=== PATIENT | female | born 1960 | race Caucasian/White ===

== ENCOUNTER 2018-04-20 08:30 | Emergency (ER) | payer MEDICARE ==
[2018-04-20] MEDS ORDERED: solu-MEDROL 125 MG IV ONE (08:53)
[2018-04-20] MEDS ORDERED: DUONEB 0.5-3 MG/3 ml Neb IH ONE ×2 (08:53→09:02)
[2018-04-20] MEDS ORDERED: Sodium Chloride 0.9% 1000 ML 1,000 ML IV STA ×3 (08:53→09:28)
--- NOTE | 2018-04-20 09:02 | ERPHSYRPT ---
- History of Present Illness Time Seen by Provider: 04/20/18 08:48 Source: patient Exam Limitations: no limitations Patient Subjective Stated Complaint: HAS HAD URI FOR THREE WEEKS. SAW FAMILY DOCTOR LAST TUESDAY AND WAS GIVEN STEROIDS AND ANTIBIOTIC. IS NOT GETTING ANY BETTER. Triage Nursing Assessment: AMBULATED TO ROOM PER SELF. SKIN W/D, COLOR NORMAL, RESP NONLABORED. EXP WHEEZE HEARD RIGHT LOWER LOBE BASE. Physician History: 57-year-old white female with history of CVA, hypothyroidism, hypercholesterolemia, bladder cancer, uterine cancer, Patient arrives with complaint of upper respiratory infection and short of breath for 4 weeks She is not complaining of any fever she has no chest pain she states that she is on Augmentin tapering dose of prednisone and has albuterol at home Patient apparently had presented this morning for a chest x-ray and then presented to the emergency room with the above complaint. Patient without nausea or vomiting. Past medical history includes hypothyroidism, CVA, hypercholesterolemia, fractures, bladder cancer, anxiety, depression, uterine cancer, patient self catheterizes herself her urine Past surgical history includes orthopedic surgery, hysterectomy, urostomy tube urostomy tube, bladder urethral surgery Social history patient states she is a former smoker Timing/Duration: week(s) (4 weeks) Activities at Onset: none Severity of Dyspnea-Max: moderate Severity of Dyspnea-Current: moderate Possible Cause: occasional episodes Modifying Factors: Improves With: albuterol nebulizer Associated Symptoms: constant, wheezing, No intermittent, No anxiety, No cough, No chest pain/discomfort, No edema, No fever, No insomnia, No loss of appetite, No lightheadedness, No weakness, No ankle swelling, No chills, No hemoptysis, No calf pain, No dizziness, No heaviness, No heart racing, No lightheadedness, No leg swelling, No muscle spasms feet, No muscle spasms hands, No painful breathing, No productive cough, No sweating, No tightness, No tingling face International travel in last 2 weeks: No Allergies/Adverse Reactions: morphine Allergy (Verified 04/20/18 08:42) Itching Sulfa (Sulfonamide Antibiotics) Allergy (Verified 04/20/18 08:42) hives, itching, swelling Home Medications: Leflunomide [Arava] 20 mg PO DAILY 05/21/16 [History] Levothyroxine Sodium [Synthroid] 175 mcg PO DAILY 04/19/17 [History] Oxycodone HCl/Acetaminophen [Percocet 7.5-325 mg Tablet] 1 tab PO Q6H 04/19/17 [ History] Apixaban [Eliquis] 5 mg PO BID 04/20/18 [History] Zolpidem Tartrate 10 mg [Ambien 10 MG] 10 mg PO HS 04/20/18 [History] Hx Tetanus, Diphtheria Vaccination/Date Given: Yes Hx Influenza Vaccination/Date Given: Yes Hx Pneumococcal Vaccination/Date Given: No - Review of Systems Constitutional: No Fever, No Chills Eyes: No Symptoms Ears, Nose, & Throat: Nose Congestion, Nose Discharge, No Ear Pain, No Ear Discharge, No Hearing Changes, No Tinnitus, No Nose Pain, No Sinus Drainage, No Epistaxis, No Mouth Pain, No Mouth Swelling, No Loose Teeth, No Throat Pain, No Throat Swelling, No Hoarse, No Painful Swallowing, No Snoring, No Stridor Respiratory: Cough, Dyspnea, Wheezing, No Cyanosis, No Dyspnea on Exertion (GARZA) , No Stridor Cardiac: No Symptoms Abdominal/Gastrointestinal: No Abdominal Pain, No Nausea, No Vomiting, No Diarrhea Genitourinary Symptoms: No Dysuria Musculoskeletal: No Back Pain, No Neck Pain Skin: No Rash Neurological: No Dizziness, No Focal Weakness, No Sensory Changes Psychological: No Symptoms Endocrine: No Symptoms All Other Systems: Reviewed and Negative - Past Medical History Pertinent Past Medical History: Yes Neurological History: Stroke ENT History: No Pertinent History Cardiac History: High Cholesterol Respiratory History: No Pertinent History Endocrine Medical History: Hypothyroidism Musculoskeletal History: Fractures GI Medical History: No Pertinent History History: Bladder Cancer Psycho-Social History: Depression, Anxiety Female Reproductive Disorders: Cervical Cancer, Uterine Cancer Other Medical History: Self cath - Past Surgical History Past Surgical History: Yes Neuro Surgical History: No Pertinent History Cardiac: No Pertinent History Respiratory: No Pertinent History Gastrointestinal: No Pertinent History Genitourinary: No Pertinent History Musculoskeletal: Orthopedic Surgery, Other Female Surgical History: Hysterectomy Other Surgical History: BLADDER TUMOR REMOVED - Social History Smoking Status: Current every day smoker How long have you smoked: YRS Exposure to second hand smoke: No Drug Use: none Patient Lives Alone: No - Female History Hx Now: No - Nursing Vital Signs Nursing Vital Signs: Initial Vital Signs Temperature 98.7 F 04/20/18 08:33 Pulse Rate 126 H 04/20/18 08:33 Respiratory Rate 20 04/20/18 08:33 Blood Pressure 142/86 04/20/18 08:33 O2 Sat by Pulse Oximetry 97 04/20/18 08:33 Pain Scale Pain Intensity 0 - Physical Exam General Appearance: mild distress, alert Eye Exam: PERRL/EOMI Ears, Nose, Throat Exam: hearing grossly normal, normal ENT inspection, normal pharynx, nasal congestion, No abnormal TM (R), No abnormal TM (L), No sinus pain /drainage, No hearing decreased, No pharyngeal erythema, No tonsillar exudate, No tonsillar swelling Neck Exam: normal inspection, supple Respiratory Exam: lungs clear, No normal breath sounds, No chest tenderness, No respiratory distress, No airway intact, No diminished breath sounds, No accessory muscle use, No prolonged expirations, No crackles/rales, No rhonchi, No wheezing, No stridor, No pleural rub Cardiovascular/Chest Exam: normal heart sounds, regular rate/rhythm Abdominal/Gastrointestinal Exam: soft, No tenderness, No distention, No mass Extremity Exam: non-tender, normal range of motion, normal inspection, no calf tenderness, no pedal edema Peripheral Pulses Exam: dorsalis-pedis (R): 2+, dorsalis-pedis (L): 2+ Neurologic Exam: alert, oriented x 3, cooperative, fire prevention specialist II-XII nml as tested, sensation nml, No motor deficits Skin Exam: normal color, warm, No dry SpO2 Interpretation: normal (97%) SpO2: 97 - Course Nursing assessment & vital signs reviewed: Yes EKG Interpreted by Me: RATE (94 bpm), Sinus Rhythm, NORMAL AXIS, Other (EKG: Sinus rhythm, 94 bpm, normal axis, no acute ST or T wave changes, compared to August 25, 2015) Ordered Tests: Active Orders 24 hr Category Date Time Status Sole Layer STAT Care 04/20/18 08:55 Active EKG-ER Only STAT Care 04/20/18 08:53 Active IV Insertion STAT Care 04/20/18 08:53 Active Pulse Oximetry (ED) STAT Care 04/20/18 08:53 Active Regular Diet Diet 04/20/18 Lunch Active BLOOD CULTURE Stat Lab 04/20/18 09:44 Received CBC W DIFF Stat Lab 04/20/18 08:35 Completed CMP Stat Lab 04/20/18 08:35 Completed CULTURE,SPUTUM Stat Lab 04/20/18 09:22 Uncollected CULTURE,URINE Stat Lab 04/20/18 09:37 Received D-DIMER QUANTITATION Stat Lab 04/20/18 08:35 Completed Lactic Acid Stat Lab 04/20/18 09:15 Completed Lactic Acid Stat Lab 04/20/18 12:43 Results NT PRO BNP Stat Lab 04/20/18 08:35 Completed TROPONIN Q3H Lab 04/20/18 08:35 Completed UA W/RFX UR CULTURE Stat Lab 04/20/18 09:37 Completed VENOUS BLOOD GAS Stat Lab 04/20/18 09:15 Completed Peak Expiratory Flow Rate ONCE RT 04/20/18 09:00 Active Respiratory Nebulizer STAT RT 04/20/18 08:55 Active Respiratory Nebulizer STAT RT 04/20/18 13:00 Active Respiratory Therapy Assessment DAILY RT 04/20/18 09:00 Active Medication Summary Discontinued Medications Generic Name Dose Route Start Last Admin Trade Name Freq PRN Reason Stop Dose Admin Albuterol Sulfate 2.5 mg 04/20/18 13:00 04/20/18 13:04 Proventil 2.5 Mg/3 Ml Neb IH 04/20/18 13:01 2.5 mg STAT ONE Administration Albuterol Sulfate Confirm 04/20/18 13:06 Proventil 2.5 Mg/3 Ml Neb Administered 04/20/18 13:07 Dose 2.5 mg IH .STK-MED ONE Albuterol/Ipratropium 3 ml 04/20/18 08:53 04/20/18 09:03 Duoneb 0.5-3 Mg/3 Ml Neb IH 04/20/18 08:54 3 ml STAT ONE Administration Albuterol/Ipratropium Confirm 04/20/18 09:02 Duoneb 0.5-3 Mg/3 Ml Neb Administered 04/20/18 09:03 Dose 3 ml IH .STK-MED ONE Sodium Chloride 1,000 mls @ 999 mls/hr 04/20/18 08:53 04/20/18 10:42 Sodium Chloride 0.9% 1000 Ml IV 04/20/18 09:53 Infused .Q1H1M STA Infusion Ceftriaxone Sodium/Dextrose 1 g in 50 mls @ 100 mls/hr 04/20/18 09:24 12:59 Rocephin 1 Gm-D5w 50 Ml Bag IV 04/20/18 09:53 Infused STAT STA Infusion Sodium Chloride 1,000 mls @ 999 mls/hr 04/20/18 09:25 04/20/18 11:54 Sodium Chloride 0.9% 1000 Ml IV 04/20/18 10:25 Infused .Q1H1M STA Infusion Sodium Chloride 1,000 mls @ 999 mls/hr 04/20/18 09:28 04/20/18 13:00 Sodium Chloride 0.9% 1000 Ml IV 04/20/18 10:28 Infused .Q1H1M STA Infusion Sodium Chloride Confirm 04/20/18 09:41 Sodium Chloride 0.9% 1000 Ml Administered 04/20/18 09:42 Dose 1,000 mls @ ud .ROUTE .STK-MED ONE Ceftriaxone Sodium/Dextrose Confirm 04/20/18 09:41 Rocephin 1 Gm-D5w 50 Ml Bag Administered 04/20/18 09:42 Dose 1 g in 50 mls @ ud IV .STK-MED ONE Sodium Chloride Confirm 04/20/18 10:39 Sodium Chloride 0.9% 1000 Ml Administered 04/20/18 10:40 Dose 1,000 mls @ ud .ROUTE .STK-MED ONE Sodium Chloride Confirm 04/20/18 11:53 Sodium Chloride 0.9% 1000 Ml Administered 04/20/18 11:54 Dose 1,000 mls @ ud .ROUTE .STK-MED ONE Methylprednisolone Sodium Succinate 125 mg 04/20/18 08:53 04/20/18 09:47 Solu-Medrol 125 Mg IV 04/20/18 08:54 125 mg STAT ONE Administration Methylprednisolone Sodium Succinate Confirm 04/20/18 09:40 Solu-Medrol 125 Mg Administered 04/20/18 09:41 Dose 125 mg .ROUTE .STK-MED ONE Oseltamivir Phosphate 75 mg 04/20/18 10:45 04/20/18 11:12 Tamiflu 75mg Capsule PO 04/20/18 10:46 75 mg STAT ONE Administration Oseltamivir Phosphate Confirm 04/20/18 11:11 Tamiflu 75mg Capsule Administered 04/20/18 11:12 Dose 75 mg PO .STK-MED ONE Potassium Chloride 20 meq 04/20/18 09:31 04/20/18 09:47 Klor Con 10 Meq PO 04/20/18 09:32 20 meq STAT ONE Administration Potassium Chloride Confirm 04/20/18 09:40 Klor Con 10 Meq Administered 04/20/18 09:41 Dose 20 meq PO .STK-MED ONE Lab/Rad Data: Laboratory Result Diagrams 04/20/18 08:35 04/20/18 08:35 Laboratory Results 04/20/18 04/20/18 04/20/18 Range/Units Unknown 12:43 09:37 WBC (4.0-10.5) K/mm3 RBC (4.1-5.4) M/mm3 Hgb (12.0-16.0) gm/dl Hct (35-47) % MCV (78-100) fl MCH (26-32) pg MCHC (32-36) g/dl RDW (11.5-14.0) % Plt Count (150-450) K/mm3 MPV (6-9.5) fl Gran % (36.0-66.0) % Eos # (Auto) (0-0.5) Absolute Lymphs (auto) (1.0-4.6) Absolute Monos (auto) (0.0-1.3) Lymphocytes % (24.0-44.0) % Monocytes % (0.0-12.0) % Eosinophils % (0.00-5.0) % Basophils % (0.0-0.4) % Absolute Granulocytes (1.4-6.9) Basophils # (0-0.4) D-Dimer (215-500) ng/mL pO2/FiO2 Ratio % VBG pH (7.32-7.42) VBG pCO2 at Pat Temp (42-55) mm/Hg VBG pO2 at Pat Temp (25-40) mm/Hg VBG HCO3 (22-28) meq/L VBG O2 Sat (Yany) (95-100) VBG Base Excess (-2.0-2.0) VBG Hemoglobin VBG Carboxyhemoglobin (0.0-6.9) % T HGB POC Potassium (3.5-5.1) Sodium (137-145) mmol/L Potassium (3.5-5.1) mmol/L Chloride (98-107) mmol/L Carbon Dioxide (22-30) mmol/L Anion Gap (5-15) MEQ/L BUN (7-17) mg/dL Creatinine (0.52-1.04) mg/dL Estimated GFR ML/MIN Glucose (74-106) mg/dL Lactic Acid 3.8 H (0.4-2.0) Calcium (8.4-10.2) mg/dL Total Bilirubin (0.2-1.3) mg/dL AST (14-36) U/L ALT (0-35) U/L Alkaline Phosphatase (38-126) U/L Troponin I (0.000-0.034) ng/mL NT-Pro-B Natriuret Pep (0-900) pg/mL Serum Total Protein (6.3-8.2) g/dL Albumin (3.5-5.0) g/dL Urine Color YELLOW (YELLOW) Urine Appearance CLEAR (CLEAR) Urine pH 7.0 (5-6) Ur Specific Regan 1.009 (1.005-1.025) Urine Protein NEGATIVE (Negative) Urine Ketones NEGATIVE (NEGATIVE) Urine Blood SMALL (0-5) Sky/ul Urine Nitrite POSITIVE (NEGATIVE) Urine Bilirubin NEGATIVE (NEGATIVE) Urine Urobilinogen NEGATIVE (0-1) mg/dL Ur Leukocyte Esterase TRACE (NEGATIVE) Urine WBC (Auto) 16-25 (0-5) /HPF Urine RBC (Auto) 3-5 (0-2) /HPF U Epithel Cells (Auto) NONE (FEW) /HPF Urine Bacteria (Auto) MODERATE (NEGATIVE) /HPF Urine Culture Reflexed YES (NO) Urine Glucose NEGATIVE (NEGATIVE) mg/dL Influenza Type A Ag POSITIVE (NEGATIVE) Influenza Type B Ag NEGATIVE (NEGATIVE) RSV (PCR) NEGATIVE (Negative) 04/20/18 04/20/18 04/20/18 Range/Units 09:15 08:35 08:35 WBC (4.0-10.5) K/mm3 RBC (4.1-5.4) M/mm3 Hgb (12.0-16.0) gm/dl Hct (35-47) % MCV (78-100) fl MCH (26-32) pg MCHC (32-36) g/dl RDW (11.5-14.0) % Plt Count (150-450) K/mm3 MPV (6-9.5) fl Gran % (36.0-66.0) % Eos # (Auto) (0-0.5) Absolute Lymphs (auto) (1.0-4.6) Absolute Monos (auto) (0.0-1.3) Lymphocytes % (24.0-44.0) % Monocytes % (0.0-12.0) % Eosinophils % (0.00-5.0) % Basophils % (0.0-0.4) % Absolute Granulocytes (1.4-6.9) Basophils # (0-0.4) D-Dimer 474 (215-500) ng/mL pO2/FiO2 Ratio 21.0 % VBG pH 7.45 H (7.32-7.42) VBG pCO2 at Pat Temp 45 (42-55) mm/Hg VBG pO2 at Pat Temp 33 (25-40) mm/Hg VBG HCO3 31.3 H* (22-28) meq/L VBG O2 Sat (Yany) 68.5 L (95-100) VBG Base Excess 6.2 H (-2.0-2.0) VBG Hemoglobin 16.1 VBG Carboxyhemoglobin 1.8 (0.0-6.9) % T HGB POC Potassium 4.0 (3.5-5.1) Sodium (137-145) mmol/L Potassium (3.5-5.1) mmol/L Chloride (98-107) mmol/L Carbon Dioxide (22-30) mmol/L Anion Gap (5-15) MEQ/L BUN (7-17) mg/dL Creatinine (0.52-1.04) mg/dL Estimated GFR ML/MIN Glucose (74-106) mg/dL Lactic Acid 3.1 H (0.4-2.0) Calcium (8.4-10.2) mg/dL Total Bilirubin (0.2-1.3) mg/dL AST (14-36) U/L ALT (0-35) U/L Alkaline Phosphatase (38-126) U/L Troponin I < 0.012 (0.000-0.034) ng/mL NT-Pro-B Natriuret Pep (0-900) pg/mL Serum Total Protein (6.3-8.2) g/dL Albumin (3.5-5.0) g/dL Urine Color (YELLOW) Urine Appearance (CLEAR) Urine pH (5-6) Ur Specific Regan (1.005-1.025) Urine Protein (Negative) Urine Ketones (NEGATIVE) Urine Blood (0-5) Sky/ul Urine Nitrite (NEGATIVE) Urine Bilirubin (NEGATIVE) Urine Urobilinogen (0-1) mg/dL Ur Leukocyte Esterase (NEGATIVE) Urine WBC (Auto) (0-5) /HPF Urine RBC (Auto) (0-2) /HPF U Epithel Cells (Auto) (FEW) /HPF Urine Bacteria (Auto) (NEGATIVE) /HPF Urine Culture Reflexed (NO) Urine Glucose (NEGATIVE) mg/dL Influenza Type A Ag (NEGATIVE) Influenza Type B Ag (NEGATIVE) RSV (PCR) (Negative) 04/20/18 04/20/18 Range/Units 08:35 08:35 WBC 7.7 (4.0-10.5) K/mm3 RBC 5.05 (4.1-5.4) M/mm3 Hgb 15.7 (12.0-16.0) gm/dl Hct 49.7 H (35-47) % MCV 98.4 (78-100) fl MCH 31.1 (26-32) pg MCHC 31.6 L (32-36) g/dl RDW 15.1 H (11.5-14.0) % Plt Count 263 (150-450) K/mm3 MPV 10.1 H (6-9.5) fl Gran % 70.6 H (36.0-66.0) % Eos # (Auto) 0.15 (0-0.5) Absolute Lymphs (auto) 1.10 (1.0-4.6) Absolute Monos (auto) 1.00 (0.0-1.3) Lymphocytes % 14.3 L (24.0-44.0) % Monocytes % 13.0 H (0.0-12.0) % Eosinophils % 2.0 (0.00-5.0) % Basophils % 0.1 (0.0-0.4) % Absolute Granulocytes 5.43 (1.4-6.9) Basophils # 0.01 (0-0.4) D-Dimer (215-500) ng/mL pO2/FiO2 Ratio % VBG pH (7.32-7.42) VBG pCO2 at Pat Temp (42-55) mm/Hg VBG pO2 at Pat Temp (25-40) mm/Hg VBG HCO3 (22-28) meq/L VBG O2 Sat (Yany) (95-100) VBG Base Excess (-2.0-2.0) VBG Hemoglobin VBG Carboxyhemoglobin (0.0-6.9) % T HGB POC Potassium (3.5-5.1) Sodium 141 (137-145) mmol/L Potassium 3.6 (3.5-5.1) mmol/L Chloride 100 (98-107) mmol/L Carbon Dioxide 30 (22-30) mmol/L Anion Gap 13.8 (5-15) MEQ/L BUN 17 (7-17) mg/dL Creatinine 1.26 H (0.52-1.04) mg/dL Estimated GFR 46.2 ML/MIN Glucose 80 (74-106) mg/dL Lactic Acid (0.4-2.0) Calcium 9.3 (8.4-10.2) mg/dL Total Bilirubin 0.80 (0.2-1.3) mg/dL AST 19 (14-36) U/L ALT 25 (0-35) U/L Alkaline Phosphatase 136 H (38-126) U/L Troponin I (0.000-0.034) ng/mL NT-Pro-B Natriuret Pep 98.1 (0-900) pg/mL Serum Total Protein 7.5 (6.3-8.2) g/dL Albumin 4.1 (3.5-5.0) g/dL Urine Color (YELLOW) Urine Appearance (CLEAR) Urine pH (5-6) Ur Specific Regan (1.005-1.025) Urine Protein (Negative) Urine Ketones (NEGATIVE) Urine Blood (0-5) Sky/ul Urine Nitrite (NEGATIVE) Urine Bilirubin (NEGATIVE) Urine Urobilinogen (0-1) mg/dL Ur Leukocyte Esterase (NEGATIVE) Urine WBC (Auto) (0-5) /HPF Urine RBC (Auto) (0-2) /HPF U Epithel Cells (Auto) (FEW) /HPF Urine Bacteria (Auto) (NEGATIVE) /HPF Urine Culture Reflexed (NO) Urine Glucose (NEGATIVE) mg/dL Influenza Type A Ag (NEGATIVE) Influenza Type B Ag (NEGATIVE) RSV (PCR) (Negative) - Progress Progress: improved Air Movement: fair Progress Note: 04/20/18 09:01 57-year-old white female arrives with complaint of upper respiratory infection also states that she's been coughing short of breath and feels like she is wheezy symptoms going on for 4 weeks. Patient has been seen by her family doctor she was placed on steroids given Augmentin and has albuterol at home. She states she still feels short of breath she presented for a chest x-ray this morning which was read out as hyperinflated chest with chronic features. And then she had presented to the emergency room. Patient sounds clear at this point however patient states that she feels like she is not moving air well Will go ahead and check appropriate labs obtain an EKG go ahead and give the patient Solu-Medrol and a DuoNeb treatment. 04/20/18 09:23 Patient does have an elevated lactate she does not appear to be septic however Will go ahead and provide IV fluids she was noted to have mild tachycardia on arrival she is afebrile she has good perfusion to all of her extremities blood pressure 142/86 saturations are 97%. Will go ahead and culture patient's urine and blood and sputum. Patient is on Augmentin however Will give patient Rocephin 1 g IV here in the emergency room. 04/20/18 10:37 Patient positive for influenza A Patient also with 16-25 white cells per high-power field in her urine positive nitrites Patient has been given Rocephin. Will consider Tamiflu. Patient receiving bolus of fluids. 04/20/18 10:43 Patient states she is she had had a cough going on and then yesterday she felt markedly worse with congestion upper respiratory symptoms and worsening of her cough. Will go ahead and place patient on Tamiflu. Patient looking markedly and approved after 1 L of fluids will give patient a total of 2400 mL of normal saline (30 mL/kg) Expect patient will be able to go home She is to continue her prednisone taper, albuterol, Augmentin. Urine cultures are pending patient has received Rocephin Will begin Tamiflu. Will recheck lactate after fluids are instilled expect discharge if within normal limits. 04/20/18 13:01 Patient's lactate is actually elevated to 3.8. Patient really is feeling well she has a few wheezes on recheck she is going to receive another albuterol treatment. Patient is afebrile she has good perfusion blood pressure is stable heart rate at 91 which is markedly improved pulse oximetry was 98 blood pressure 133/65. Patient has received 2400 mL of normal saline she's received Solu-Medrol 125 mg IV she's received Rocephin 1 g IV. She is also received Tamiflu 75 mg orally. I've discussed the patient's case with Dr. Blum patient appears to be stable she does not appear to be septic she does have an elevated lactate. Will go ahead and discharge patient. Dr. Blum stated that he would be happy to see the patient tomorrow patient wants to go home. The patient does state that she has an appointment with Yessica Lopez tomorrow I told her that Dr. Blum was happy to see her if she wished him to do so she will need to contact him if she prefers this over her regular Dr. Aretha Lopez. Will give patient another albuterol treatment plan to send patient home I've told her to take an extra prednisone tablet today. Will write for Tamiflu for home she is to continue Augmentin. She is return for acute distress severe symptoms or any problems. She is to follow-up with Yessica Lopez or Dr. Blum tomorrow. - Departure Time of Disposition: 13:05 Departure Disposition: Home Clinical Impression: Cough, Bronchospasm, Influenza A, elevated serum lactate UTI (urinary tract infection) Qualifiers: Urinary tract infection type: site unspecified Hematuria presence: without hematuria Qualified Code(s): N39.0 - Urinary tract infection, site not specified Condition: Fair Critical Care Time: No Referrals: YESSICA LOPEZ [Primary Care Provider] - Additional Instructions: Return home. Plenty of fluids. Continue Augmentin as prescribed by your family doctor. Continue prednisone as prescribed by your family doctor taken extra dose today. Tamiflu 75 mg orally twice a day for 5 days. Continue albuterol inhalation treatments every 4 hours as needed. Follow-up with Yessica Lopez tomorrow as scheduled. Return for acute distress or for severe symptoms. Or for any problems. Prescriptions: Oseltamivir 75 mg [Tamiflu 75MG Capsule] 75 mg PO BID #10 cap
[2018-04-20 09:14] LABS: BASOPHIL % 0.1 % (0.0-0.4); Basophil (Absolute #) 0.01 (0-0.4); Eosinophil (Absolute #) 0.15 (0-0.5); Granulocyte Absolute (ANC) 5.43 (1.4-6.9); Granulocytes % 70.6 % (36.0-66.0); Hematocrit 49.7 % (35-47); Hemoglobin 15.7 gm/dl (12.0-16.0); Lymphocytes % 14.3 % (24.0-44.0); Mean Cell Volume 98.4 fl (78-100); Mean Corpuscular Hemoglobin 31.1 pg (26-32); Mean Corpuscular Hgb Concent. 31.6 g/dl (32-36); Mean Platelet Volume 10.1 fl (6-9.5); Platelet Count 263 K/mm3 (150-450); Red Blood Count 5.05 M/mm3 (4.1-5.4); Red Cell Distribution Width 15.1 % (11.5-14.0); White Blood Count 7.7 K/mm3 (4.0-10.5)
[2018-04-20 09:19] LABS: Lactic Acid 3.1 (0.4-2.0); VBG BASE EXCESS 6.2 (-2.0-2.0); VBG CARBOXYHEMOGLOBIN 1.8 % T HGB (0.0-6.9); VBG HCO3- 31.3 meq/L (22-28); VBG HEMOGLOBIN 16.1; VBG O2 SATURATION 68.5 (95-100); VBG PCO2 45 mm/Hg (42-55); VBG PO2 33 mm/Hg (25-40); VBG pH 7.45 (7.32-7.42)
[2018-04-20] MEDS ORDERED: ROCEPHIN 1 Gm-D5w 50 ml Bag** 1 G/50 ML IVPB IV STA (09:24)
[2018-04-20 09:27] LABS: ALBUMIN 4.1 g/dL (3.5-5.0); ANION GAP 13.8 MEQ/L (5-15); BILIRUBIN,TOTAL 0.8 mg/dL (0.2-1.3); Calcium 9.3 mg/dL (8.4-10.2); Creatinine 1 1.26 mg/dL (0.52-1.04); NT PRO BNP 98.1 pg/mL (0-900); Potassium 3.6 mmol/L (3.5-5.1); Total Protein 7.5 g/dL (6.3-8.2)
[2018-04-20] MEDS ORDERED: Klor Con 10 MEQ PO ONE ×2 (09:31→09:40)
[2018-04-20] MEDS ORDERED: solu-MEDROL 125 MG ONE (09:40)
[2018-04-20] MEDS ORDERED: ROCEPHIN 1 Gm-D5w 50 ml Bag** 1 G/50 ML IVPB IV ONE (09:41)
[2018-04-20] MEDS ORDERED: Sodium Chloride 0.9% 1000 ML 1,000 ML ONE ×3 (09:41→11:53)
[2018-04-20 10:30] LABS: Appearance CLEAR (CLEAR); Bacteria MODERATE /HPF (NEGATIVE); Bilirubin NEGATIVE (NEGATIVE); Blood SMALL Ery/ul (0-5); Glucose NEGATIVE (NEGATIVE); Ketones NEGATIVE (NEGATIVE); Leukocyte Esterase TRACE (NEGATIVE); Nitrite POSITIVE (NEGATIVE); Protein,Urine Dip NEGATIVE (Negative); Specific Gravity 1.009 (1.005-1.025); Urobilinogen NEGATIVE mg/dL (0-1)
[2018-04-20 10:37] LABS: INFLUENZA A POSITIVE (NEGATIVE); INFLUENZA B NEGATIVE (NEGATIVE); RESPIRATORY SYNCTIAL VIRUS NEGATIVE (Negative)
[2018-04-20] MEDS ORDERED: Tamiflu 75MG Capsule PO ONE ×2 (10:45→11:11)
[2018-04-20 12:45] LABS: Lactic Acid 3.8 (0.4-2.0)
[2018-04-20] MEDS ORDERED: PROVENTIL 2.5 MG/3 ML NEB IH ONE ×2 (13:00→13:06)
[2018-04-20 13:11] VITALS: BP 133/65; PULSE 88
[2018-04-20 13:21] VITALS: O2SAT 97
== END 2018-04-20 13:27 | disposition home or self-care (01) ==
LOC: ED 08:30
DX: R05 Cough (principal); J98.01 Acute bronchospasm; J10.1 Influenza due to other identified influenza virus with other respiratory manifestations; R74.0 Nonspecific elevation of levels of transaminase and lactic acid dehydrogenase [LDH]; N39.0 Urinary tract infection, site not specified; Z86.73 Personal history of transient ischemic attack (TIA), and cerebral infarction without residual deficits; E03.9 Hypothyroidism, unspecified; E78.00 Pure hypercholesterolemia, unspecified; Z85.41 Personal history of malignant neoplasm of cervix uteri; Z85.42 Personal history of malignant neoplasm of other parts of uterus; F41.8 Other specified anxiety disorders; Z85.51 Personal history of malignant neoplasm of bladder
CPT/HCPCS: 36000; 36415; 71046; 80053; 81001; 82805; 83605; 83880; 84484; 85025; 85379; 87040; 87077; 87086; 87186; 87631; 93005; 93041; 94150; 94640; 96360; 96361; 96365; 96374; 99285; J0696; J2930; J7609; A9270-GY

== ENCOUNTER 2019-07-25 10:42 | Day surgery (SDC) | payer MEDICARE ==
[2019-07-25] MEDS ORDERED: Depo-Medrol 40 MG/ML IM ONE (10:43)
[2019-07-25] MEDS ORDERED: DIPRIVAN 200 MG/20 ML IV ONE (10:43)
[2019-07-25] MEDS ORDERED: Marcaine 0.5% SDV 10 ML IM ONE (10:43)
[2019-07-25] MEDS ORDERED: Lactated Ringers 1,000 ML IV ONE (10:43)
[2019-07-25] MEDS ORDERED: Ketamine HCl 50 MG/ML IV ONE (10:43)
--- NOTE | 2019-07-25 14:21 | XRAY ---
Indication: Left knee injection. Intraoperative fluoroscopy was provided for 8 seconds. Single digital spot images submitted for interpretation demonstrates needle tip projecting over the left femur intercondylar notch. Small amount of contrast injected for needle tip placement. Correlate with intraoperative findings/report.
--- NOTE | 2019-07-25 14:26 | XRAY ---
8 seconds of fluoroscopy was used in surgery for a left knee intra-articular injection.
--- NOTE | 2019-07-25 14:31 | XRAY ---
Indication: Right knee injection. Intraoperative fluoroscopy was provided for 8 seconds. Single digital spot images submitted for interpretation demonstrates needle tip projecting over the right femur intercondylar notch. Small amount of contrast injected for needle tip placement. Correlate with intraoperative findings/report.
--- NOTE | 2019-07-25 14:36 | XRAY ---
8 seconds of fluoroscopy was used in surgery for a right knee intra-articular injection.
== END 2019-07-25 13:10 | disposition home or self-care (01) ==
LOC: SDC-PAIN 10:42 → MERGE 10:42 → SDC-PAIN 13:10
PROVIDERS: ATTEND Psychiatry & Neurology Pain Medicine
DX: M17.0 Bilateral primary osteoarthritis of knee (principal); K21.9 Gastro-esophageal reflux disease without esophagitis; E03.9 Hypothyroidism, unspecified; Z86.711 Personal history of pulmonary embolism; Z79.01 Long term (current) use of anticoagulants; Z79.899 Other long term (current) drug therapy
CPT/HCPCS: 20610; 73560; 77002; J1030; J2704; Q9966

== ENCOUNTER 2019-12-12 13:05 | Day surgery (SDC) | payer MEDICARE ==
[2019-12-12] MEDS ORDERED: Depo-Medrol 40 MG/ML IM ONE (13:06)
[2019-12-12] MEDS ORDERED: BUPIVACAINE 0.5% VIAL IJ ONE (13:06)
[2019-12-12] MEDS ORDERED: DIPRIVAN 200 MG/20 ML IV ONE (14:54)
[2019-12-12] MEDS ORDERED: Ketamine HCl 50 MG/ML ONE (14:54)
--- NOTE | 2019-12-12 16:39 | XRAY ---
Indication: Left knee injection. Intraoperative fluoroscopy was provided for 9 seconds. Single digital spot image submitted for interpretation demonstrates needle tip projecting over the left femur intercondylar notch. Small amount of contrast injected for needle tip placement. Correlate with intraoperative findings/report.
--- NOTE | 2019-12-12 16:39 | XRAY ---
Indication: Right knee injection. Intraoperative fluoroscopy was provided for 8 seconds. Single digital spot image submitted for interpretation demonstrates needle tip projecting over the right femur intercondylar notch. Small amount of contrast injected for needle tip placement. Correlate with intraoperative findings/report.
--- NOTE | 2019-12-12 16:41 | XRAY ---
8 seconds fluoroscopy time in surgery for right intra-articular knee injection.
--- NOTE | 2019-12-12 16:41 | XRAY ---
9 seconds fluoroscopy time in surgery for left intra-articular knee injection.
[2019-12-12] MEDS ORDERED: Lactated Ringers 1,000 ML IV ONE (16:51)
== END 2019-12-12 15:25 | disposition home or self-care (01) ==
LOC: SDC-PAIN 13:05
PROVIDERS: ATTEND Psychiatry & Neurology Pain Medicine
DX: M17.0 Bilateral primary osteoarthritis of knee (principal); E03.9 Hypothyroidism, unspecified; K21.9 Gastro-esophageal reflux disease without esophagitis; Z86.711 Personal history of pulmonary embolism; Z79.01 Long term (current) use of anticoagulants; Z85.51 Personal history of malignant neoplasm of bladder; Z79.899 Other long term (current) drug therapy
CPT/HCPCS: 20610; 73560; 77002; J1030; J2704; Q9966